=== PATIENT | male | born 1985 | race Hispanic/Latino ===

== ENCOUNTER 2017-05-01 08:46 | Emergency (ER) | payer OTHER, SELFPAY ==
[2017-05-01] MEDS ORDERED: Ondansetron HCl/PF 4 MG/2 ML Vial ONE (09:29)
[2017-05-01] MEDS ORDERED: Morphine 4 MG/ML VIAL ONE (09:29)
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
[2017-05-01] MEDS ORDERED: ISOVUE-370 76%-LOCM 1 ML ONE (12:17)
== END 2017-05-01 11:30 | disposition home or self-care (01) ==
LOC: ERS 08:46
DX: S33.5XXA Sprain of ligaments of lumbar spine, initial encounter (principal); S13.4XXA Sprain of ligaments of cervical spine, initial encounter; F17.210 Nicotine dependence, cigarettes, uncomplicated; V44.5XXA Car driver injured in collision with heavy transport vehicle or bus in traffic accident, initial encounter
CPT/HCPCS: 71260; 72125; 74177; 96361; 96374; 96375; 99406; J2270; J2405

== ENCOUNTER 2017-09-02 08:21 | Emergency (ER) | payer OTHER, SELFPAY ==
--- NOTE | 2017-09-02 09:22 | RAD ---
LEFT SHOULDER THREE VIEWS: History: Left shoulder pain. FINDINGS/IMPRESSION: No fracture, dislocation or bony destructions identified. If there is concern for rotator cuff tear, further evaluation with MRI should be performed. POS: [facility]
== END 2017-09-02 10:17 | disposition home or self-care (01) ==
LOC: ERS 08:21
DX: M25.512 Pain in left shoulder (principal); F17.210 Nicotine dependence, cigarettes, uncomplicated; Z71.6 Tobacco abuse counseling
CPT/HCPCS: 99406

== ENCOUNTER 2018-07-04 22:41 | Emergency (ER) | payer OTHER, SELFPAY ==
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
== END 2018-07-04 23:25 | disposition home or self-care (01) ==
LOC: ERS 22:41
DX: S43.015A Anterior dislocation of left humerus, initial encounter (principal); F17.210 Nicotine dependence, cigarettes, uncomplicated; W01.0XXA Fall on same level from slipping, tripping and stumbling without subsequent striking against object, initial encounter